=== PATIENT | male | born 1990 | race African-American/Black ===

== ENCOUNTER 2019-09-04 10:37 | Emergency (ER) | payer OTHER ==
--- NOTE | 2019-09-04 10:54 | PDOC ---
History of Present Illness - General Chief Complaint: Headache Stated Complaint: HEADACHE Time Seen by Provider: 09/04/19 10:40 - History of Present Illness Initial Comments: 09/04/19 11:40 29yo male with no pmhx presents with his mother for eval of causey x 1 week. Pt states this AM causey is assoc wth n/v x 5 episodes. Pt states he went to [facility] this AM, but was waiting too long to be seen so he left and his mother brought him to [facility]. Pt denies assoc f/c. No neck pain. No vision changes or blurred vision. States pain to right side of his head. States he has been taking tylenol and motrin this week for the causey. Pt states he did drink alcohol on xmas and did smoke hookah last night. Pt also states he also smokes tobacco. Pt states eating and drinking normally this week. No sick contacts. C/o nasal congestion, denies sore throat. No cough. No cp/sob. no other complaints. Pmhx: denies Pshx: denies All: NKDA Past History - Past Medical History Allergies/Adverse Reactions: Allergies Allergy/AdvReac Type Severity Reaction Status Date / Time No Known Allergies Allergy Verified 09/04/19 10:38 Home Medications: Ambulatory Orders Ibuprofen [Advil -] 200 mg PO PRN PRN 09/04/19 Ondansetron [Zofran *Odt*] 4 mg SL TID PRN #10 od.tablet 09/04/19 COPD: No - Psycho Social/Smoking Cessation Hx Smoking History: Unknown if ever smoked Have you smoked in the past 12 months: No Information on smoking cessation initiated: No Hx Alcohol Use: No Drug/Substance Use Hx: Yes (MARIJUANA) Review of Systems - Review of Systems Able to Perform ROS?: Yes Is the patient limited Cambodian proficient: No Constitutional: No: Chills, Fever HEENTM: Yes: Nose Congestion. No: Throat Pain Respiratory: No: Cough, Shortness of Breath Cardiac (ROS): No: Chest Pain ABD/GI: Yes: Nausea, Vomiting. No: Diarrhea, Abdominal cramping : No: Burning, Dysuria Musculoskeletal: No: Back Pain, Neck Pain Integumentary: No: Rash Neurological: Yes: Headache. No: Numbness, Paresthesia, Tingling, Weakness, Unsteady Gait, Ataxia, Dizziness All Other Systems: Reviewed and Negative *Physical Exam - Vital Signs Last Vital Signs Temp Pulse Resp BP Pulse Ox 97.8 F 65 20 117/79 100 09/04/19 10:37 09/04/19 10:37 09/04/19 10:37 09/04/19 10:37 09/04/19 10:37 - Physical Exam General Appearance: Yes: Nourished, Appropriately Dressed. No: Apparent Distress HEENT: positive: EOMI, JAMEEL, TMs Normal, Pharynx Normal, Nasal Congestion Neck: positive: Supple, Other (normal ROM, no meningeal signs). negative: Tender, Tender midline Respiratory/Chest: positive: Lungs Clear, Normal Breath Sounds. negative: Respiratory Distress Cardiovascular: positive: Regular Rhythm, Regular Rate, S1, S2. negative: Edema Gastrointestinal/Abdominal: positive: Soft. negative: Guarding, Rebound, Tenderness Musculoskeletal: positive: Normal Inspection Extremity: positive: Normal Capillary Refill, Normal Inspection, Normal Range of Motion, Other (ambulatory with a steady gait). negative: Calf Tenderness Integumentary: positive: Normal Color, Dry, Warm. negative: Rash Neurologic: positive: raw scales operator II-XII NML intact, Fully Oriented, Alert, Normal Mood/ Affect, Normal Response, Motor Strength 5/5, Other (ambulatory with a steady gait) ED Treatment Course - LABORATORY CBC & Chemistry Diagram: 09/04/19 11:48 09/04/19 11:48 Medical Decision Making - Medical Decision Making 09/04/19 11:44 a/p: 29yo male with a week of causey -has been drinking alcohol for the holiday- but not getting drunk per the patient -has been smoking more hookah -causey this AM with n/v, R sided -neuro intact, no fevers, no meningeal signs -pt is nonfocal neuro and nontoxic in appearnace -will check labs, no abd pain -will hydrate, reglan, tylenol for pain -will monitor and reassess -pt chatting on the phone and in NAD during exam and after -no vomiting currently 09/04/19 12:18 pt resting comfortably sleeping no vomiting labs reviewed and no acute findings 09/04/19 12:56 labs reviewed with the patient pt states causey resolved discussed po intake at home discussed all reasons to return to the ED and all reasons to follow up with PMD/ Neuro stable for dc to home neuro intact Discharge - Discharge Information Problems reviewed: Yes Clinical Impression/Diagnosis: Cephalgia Condition: Stable Disposition: HOME - Admission No - Additional Discharge Information Prescriptions: Ondansetron [Zofran *Odt*] 4 mg SL TID PRN #10 od.tablet PRN Reason: Nausea - Follow up/Referral Referrals: Kenji Gordon MD [Staff Physician] - - Patient Discharge Instructions Patient Printed Discharge Instructions: DI for Headache Additional Instructions: Please drink plenty of fluids. Please avoid Hookah and stop smoking tobacco products. Please call the neurologist and schedule a follow up appointment if the headache returns. You may take tylenol or ibuprofen as needed for the headache. Please return to the ED with any further concerns or complaints. - Post Discharge Activity
[2019-09-04 11:00] VITALS: BP 117/79; PULSE 65; TEMP 97.8; BMI 25.8
[2019-09-04] MEDS ORDERED: SODIUM CHLORIDE 0.9% 1000 ML INFUS.BAG IV ONE (11:01)
[2019-09-04] MEDS ORDERED: ACETAMINOPHEN 1000 MG/100 ML VIAL (NON FORMULARY) IVPB ONE (11:01)
[2019-09-04] MEDS ORDERED: METOCLOPRAMIDE HCL INJECTION 10 MG/2 ML VIAL IVPUSH ONE (11:01)
[2019-09-04] MEDS ORDERED: ACETAMINOPHEN INJECTION 100 ML IVPB ONE (11:15)
[2019-09-04] MEDS ORDERED: METOCLOPRAMIDE HCL INJECTION 10 MG/2 ML VIAL ONE (11:15)
[2019-09-04 12:03] LABS: MEAN PLT VOLUME 8.4 fl (7.5-11.1); RDW 12.9 % (11.9-15.9)
[2019-09-04 12:06] LABS: BASO % 0.5 % (0-2.0); EOS % 2.1 % (0-4.5); HEMATOCRIT 38.3 % (35.4-49); HEMOGLOBIN 12.6 GM/dl (11.7-16.9); LYMPH % 26.1 % (8-40); MCH 27.7 pg (25.7-33.7); MCHC 32.8 g/dl (32.0-35.9); MEAN CELL VOLUME 84.3 fl (80-96); MONO % 5.4 % (3.8-10.2); NEUT % 65.9 % (42.8-82.8); PLATELET COUNT 211 K/MM3 (134-434); RBC 4.54 M/mm3 (4.00-5.60); WHITE BLOOD COUNT 5.7 K/mm3 (4.0-10.8)
[2019-09-04 12:10] LABS: ALBUMIN 4.1 g/dl (3.4-5.0); BILIRUBIN,TOTAL 0.6 mg/dl (0.2-1); CALCIUM 8.6 mg/dl (8.5-10); CREATININE 0.7 mg/dl (0.55-1.3); POTASSIUM 3.7 mmol/L (3.5-5.1); TOT PROT 6.7 g/dl (6.4-8.2)
== END 2019-09-04 13:23 | disposition home or self-care (01) ==
LOC: FER 10:37
PROC: 3E0337Z Introduction of Electrolytic and Water Balance Substance into Peripheral Vein, Percutaneous Approach (ICD-10-PCS; principal; 2019-09-04)
PROC: 3E033NZ Introduction of Analgesics, Hypnotics, Sedatives into Peripheral Vein, Percutaneous Approach (ICD-10-PCS; 2019-09-04)
PROC: 3E033GC Introduction of Other Therapeutic Substance into Peripheral Vein, Percutaneous Approach (ICD-10-PCS; 2019-09-04)
DX: R51 Headache (principal); R09.89 Other specified symptoms and signs involving the circulatory and respiratory systems
CPT/HCPCS: 36415; 80053; 85025; 99283-25; J0131; J7030